=== PATIENT | female | born 1970 | race African-American/Black ===

== ENCOUNTER 2016-07-06 23:59 | Emergency (ER) | payer OTHER ==
--- NOTE | ~2016-07-06 | CT2 ---
[facility] A Service of [facility] RADIOLOGY TEXT RESULTS PATIENT: INGE MCKENZIE LOCATION: [facility] : 68 UNIT #: [id number] AGE: [address]: Samuel Terrazas MD SEX: F ORDER DR: [id number] [facility] [address] [place], [place] [address] [id number] MR#: [id number] Acc #: [id number] NAME: INGE MCKENZIE : 1970 SEX: F STUDY DATE/TIME: 07/07/2016 0321 UNIT: SWETA ROOM: STUDY DESCRIPTION: CT Abd and Pelv W Cont Attending Physician: Samuel Terrazas M.D. Ordering Physician: Samuel Terrazas M.D. Primary Care Physician: [facility], [facility]. MEDICAL IMAGING REPORT This report is preliminary unless electronic signature is present EXAM CT abdomen and pelvis 07/07 at 0321. INDICATION Left upper quadrant pain for 3 days with nausea. TECHNIQUE Axial images were obtained through the abdomen and pelvis following IV contrast administration. Multiplanar reformats were obtained. This CT exam was performed with one or more of the following radiation dose reduction techniques: automatic exposure control, adjustment of mA and/or kV according to patient size, and iterative reconstruction. COMPARISON STUDIES Comparison is made with 06/24/2013. FINDINGS ABDOMEN: Lung bases are clear. Gallbladder is normal. No biliary obstruction is seen. Solid organs are normal. There is acute diverticulitis involving the distal descending colon. No abscess is seen. Scattered colonic diverticula are present. The unopacified GI tract is otherwise normal. PELVIS: The appendix is normal. There is diffuse sigmoid diverticulosis. There is a left ovarian cyst measuring about 2.9 cm. Solid pelvic organs are otherwise normal. Bladder is normal. IMPRESSION 1. Acute diverticulitis involving the distal descending colon. No abscess is seen. 2. There is fairly diffuse colonic diverticulosis. GI tract including the appendix is otherwise normal. [facility] A Service of [facility] RADIOLOGY TEXT RESULTS PATIENT: INGE MCKENZIE LOCATION: [facility] : 68 UNIT #: [id number] AGE: [address]: Samuel Terrazas MD SEX: F ORDER DR: 3. 2.9 cm left ovarian cyst. 4. The remainder of the abdomen and pelvis CT is within normal limits. Dictated by... Samuel Chacon Jr., M.D. THIS IS AN ELECTRONICALLY VERIFIED REPORT Samuel Chacon Jr., M.D. at 07/07/2016 11:58 PM ANTWAN/rebecca TD: 07/07/2016 07:22 JOB #: [id number] MEDICAL IMAGING REPORT Page 1 of 1 COPY
[~2016-07-06 23:59] MED LIST: ACETAMINOPHEN650 M1 PO; ALBUTEROL17 G1 IH; AMOXICILLIN PO; BACTRIM DS TABL1 TA1 PO; DEPO-PROVER150 MG/ML; FERRO-TIME325 MG PO; LEVAQUIN250 MG PO; MACROBID100 MG PO; PYRIDIUM PO; ROBITUSSIN A-C-S1 ML PO; SUDAFED30 M1 PO; VICODIN 5/1 TAB 5/50 PO
[2016-07-07 00:53] LABS: URINE SOURCE CLEAN CATCH
[2016-07-07 01:00] LABS: URINE APPEARANCE CLOUDY; URINE BILIRUBIN NEG (NEG); URINE BLOOD NEG (NEG); URINE COLOR YELLOW; URINE GLUCOSE NEG (NEG); URINE KETONE TRACE (NEG); URINE LEUKOCYTE ESTERASE TRACE (NEG); URINE NITRATE NEG (NEG); URINE PROTEIN TRACE (NEG); URINE SPECIFIC GRAVITY 1.023 (1.003-1.035)
[2016-07-07 01:06] LABS: CULTURE INDICATED? YES; U HYALINE CASTS AUWI 0-2 /[LPF]; URINE BACTERIA AUWI NEG (NEGATIVE); URINE SQUAMOUS EPITHELIAL CELL OCC /[HPF]
[2016-07-07 01:17] LABS: URINE MUCUS PRESENT
[2016-07-07 02:41] LABS: BASOPHIL# 0.1 X10e3 (0-0.3); BASOPHIL% 0.9 % (0-2.5); EOSINOPHIL# 0.1 X10e3 (0-0.7); EOSINOPHIL% 0.5 % (0.0-7.0); HEMATOCRIT 28.3 % (35.0-45.0); HEMOGLOBIN 8.7 gm/dL (12.0-16.0); LYMPHOCYTE# 2.5 X10e3 (1.0-3.5); LYMPHOCYTE% 21.6 % (17.0-45.0); MEAN CELL VOLUME 73.5 FL (83-96); MEAN CORPUSCULAR HEMOGLOBIN 22.6 PG (28-34); MEAN CORPUSCULAR HGB CONC 30.8 g/dL (30-36); MEAN PLATELET VOLUME 7.4 FL (6.5-11.5); MONOCYTE# 0.8 X10e3 (0-1.0); MONOCYTE% 7.1 % (3.0-12.0); NEUTROPHIL% 69.9 % (40-75); PLATELET COUNT 339 X10e3 (140-420); RED BLOOD COUNT 3.84 X10e (3.90-5.30); RED CELL DISTRIBUTION WIDTH 16.7 % (11.0-15.5); WHITE BLOOD COUNT 11.4 X10e3 (4.0-10.5)
[2016-07-07 02:44] LABS: DIFF IND NO
[2016-07-07 03:18] LABS: ALBUMIN SERUM 3.1 g/dL (3.5-5.0); BILIRUBIN, DIRECT 0.1 mg/dL (0.0-0.2); BILIRUBIN,INDIRECT 0.6 mg/dL (0.0-0.9); BILIRUBIN,TOTAL 0.7 mg/dL (0.2-2.0); BUN/CREATININE RATIO 11.42; CALCIUM SERUM 8.5 mg/dL (8.4-10.2); CREATININE SERUM 0.7 mg/dL (0.6-1.4); GLOM FILT RATE Estimated 119.6 mL/min (>60); POTASSIUM 3.4 mmol/L (3.5-5.1); PROTEIN TOTAL SERUM 7.4 g/dL (6.0-8.3)
== END 2016-07-07 05:02 | disposition home or self-care (01) ==
LOC: CED 23:59
PROVIDERS: Emergency Medicine
DX: N30.00 Acute cystitis without hematuria (principal); K57.32 Diverticulitis of large intestine without perforation or abscess without bleeding; D50.9 Iron deficiency anemia, unspecified; E11.9 Type 2 diabetes mellitus without complications; I10 Essential (primary) hypertension
CPT/HCPCS: 36415; 74177; 80048; 80076; 81003; 82150; 82947; 83690; 84703; 85025; 87086; 87088; 87186; 99284; Q9967

== ENCOUNTER 2016-08-27 09:59 | Emergency (ER) | payer OTHER ==
[2016-08-27 12:13] LABS: INFLUENZA A NEG (NEG); INFLUENZA B NEG (NEG)
== END 2016-08-27 12:30 | disposition home or self-care (01) ==
LOC: CED 09:59 → CFTX 09:59
PROVIDERS: Nurse Practitioner
DX: J06.9 Acute upper respiratory infection, unspecified (principal); L30.9 Dermatitis, unspecified; I10 Essential (primary) hypertension; E11.9 Type 2 diabetes mellitus without complications
CPT/HCPCS: 87651; 87804; 99283